=== PATIENT | female | born 1975 | race African-American/Black ===

== ENCOUNTER 2022-06-06 18:57 | Emergency (ER) | payer BC ==
[~2022-06-06] VITALS: Ht 180.3 cm; Wt 122.5 kg
[2022-06-06] MEDS ORDERED: LIDOCAINE 5% PATCH TD ONE (19:39)
[2022-06-06] MEDS: LIDOCAINE 5% PATCH TD ONE (19:42)
[2022-06-06] MEDS ORDERED: KETOROLAC TROMETHAMINE 60 MG INJ IM ONE (20:54)
[2022-06-06] MEDS: KETOROLAC TROMETHAMINE 30 MG INJ IM ONE (21:24)
--- NOTE | 2022-06-06 21:25 | NUR ---
Patient c/o pain in her left leg, 8/10 on the pain scale. Torodol 30 mg IM in the left hip. Inform patient that we need to know the name of the medication she takes for HTN. I then walk her to her to retreive it. . requested. HR-86 , Temp. 98.3 Saturation 100% RR-22 BP 200/114. . was notofied. Continue to monitor.
[2022-06-06] MEDS ORDERED: METH-807 PO (22:26)
[2022-06-06] MEDS ORDERED: IBUP-1955 PO (22:26)
[2022-06-06] MEDS ORDERED: LIDO1ADH71 TD (22:26)
[2022-06-06] MEDS ORDERED: CLONIDINE HCL 0.2 MG TABLET ONE (22:43)
[2022-06-06] MEDS: CLONIDINE HCL 0.2 MG TABLET PO ONE (23:29)
[2022-06-06] MEDS: LABETALOL HCL 100 MG/20 ML VIAL IV ONE (23:30)
[2022-06-06] MEDS ORDERED: LABETALOL HCL 100 MG/20 ML VIAL ONE (23:31)
--- NOTE | 2022-06-07 00:53 | NUR ---
After several medication to control the blood pressure, the doctor gave labetalol 20 mg IVP. This then lower the blood pressure and the patient was able to send home. stable with a knee stabilizer , no pain and SBP control.
[2022-06-07 01:10] VITALS: BP 157/98
== END 2022-06-07 00:20 | disposition home or self-care (01) ==
LOC: ER 19:04
DX: S76.912A Strain of unspecified muscles, fascia and tendons at thigh level, left thigh, initial encounter (principal); X58.XXXA Exposure to other specified factors, initial encounter; Y92.89 Other specified places as the place of occurrence of the external cause; I10 Essential (primary) hypertension; E66.9 Obesity, unspecified; Z68.37 Body mass index [BMI] 37.0-37.9, adult; G47.33 Obstructive sleep apnea (adult) (pediatric)
CPT/HCPCS: 99284; 96374; 29515; 93971; 73564; 96372; J1885; J3490; A4663